=== PATIENT | male | born 1995 | race African-American/Black ===

== ENCOUNTER 2020-03-23 19:05 | Emergency (ER) | payer SELFPAY ==
[~2020-03-23] VITALS: Ht 180.3 cm; Wt 102.3 kg
[2020-03-23 19:24] VITALS: BP 149/92; Ht 180.3 cm; Wt 102.3 kg
== END 2020-03-23 21:10 | disposition home or self-care (01) ==
LOC: D.ER 19:05
DX: Z87.438 Personal history of other diseases of male genital organs (principal)